=== PATIENT | male | born 1950 | race Caucasian/White ===

== ENCOUNTER 2018-08-11 10:52 | Observation (INO) ==
[2018-08-11] MEDS ORDERED: Acetaminophen 325 MG Tablet PO ONE (11:15)
[2018-08-11] MEDS ORDERED: Sod Chloride 0.9% Inj 1,000 ML IV.SIG SCH ×2 (11:15→12:15)
--- NOTE | 2018-08-11 11:30 | ED ---
HPI General Chief Complaint: Fever Stated Complaint: Medical/fever Time Seen by Provider: 08/11/18 11:09 Source: patient and family Mode of arrival: ambulatory Limitations: no limitations History of Present Illness HPI Narrative: 67-year-old male the presents to the ED via private vehicle for evaluation of fever. Per patient he has had fever body aches and cough and congestion since last night. Per patient fever was as high as 103 today. Patient states having no chest pain but having congestion and cough. No urinary or bowel movement issues. States having chills and sweats. Per patient he is from [place]. Recently came here with . He does state the last year he had the flu around this time and believes that he might have the same. He was not given anything for his fever today. He denies any sick contacts. He denies any pain other than body aches was the pain is 4 out of 10. Has not seen anybody for this. Has not taken anything for this. Patient does have a significant history of throat cancer for which he had radiation and chemo at the end of April and that is the last time he is had any treatment for this. Per patient he is currently in remission. Related Data Home Medications Medication Instructions Recorded Confirmed gabapentin 600 mg PO TID 08/11/18 08/11/18 metoprolol tartrate 25 mg PO DAILY 08/11/18 08/11/18 Allergies Allergy/AdvReac Type Severity Reaction Status Date / Time No Known Allergies Allergy Verified 08/11/18 11:00 Review of Systems ROS: all other systems reviewed are negative [facility] Medical History Medical History CIDP (chronic inflammatory demyelinating polyneuropathy) (Acute) Throat cancer (Acute) Surgical History Surgical History H/O stem cell transplant (Acute) Social History Social History Substance History: No History of Abuse Smoking Status: Former smoker How Often Do You Have a Drink Containing Alcohol: Never Recent Travel in [facility] within the Last 8 Weeks: No Recent Out of Country Travel within the Last 8 Weeks: No Immunization History Tetanus Immunization: >5 Years Exam Narrative Exam Narrative: GENERAL: Well appearing SKIN: Focused skin assessment warm/dry. HEAD: Atraumatic. Normocephalic. EYES: Pupils equal and round. No scleral icterus. No injection or drainage. ENT: No nasal bleeding or discharge. Mucous membranes pink and moist. Tongue is midline. No uvula deviation. Nostrils are patent bilaterally. Patient does have some irritation of the mucosa on both nares with some green mucus noted in both nares are more noticeable on the left one than the right no lymphadenopathy noted. TMs are clear with no sign of infection or perforation. No meningeal signs noted. NECK: Trachea midline. No JVD. CARDIOVASCULAR: Regular rate and rhythm. No murmur appreciated. RESPIRATORY: No accessory muscle use. Clear to auscultation. Breath sounds equal bilaterally. GASTROINTESTINAL: Abdomen soft, non-tender, nondistended. Hepatic and splenic margins not palpable. MUSCULOSKELETAL: No obvious deformities. No clubbing. No cyanosis. No edema. Full range of motion of the upper and lower extremities bilaterally. 2+ pulses bilaterally. NEUROLOGICAL: Awake and alert. No obvious cranial nerve deficits. Motor grossly within normal limits. Normal speech. PSYCHIATRIC: Appropriate mood and affect; insight and judgment normal. Course Initial Documented Vital Signs Temperature 102.6 F H 08/11/18 10:56 Pulse Rate 133 H 08/11/18 10:56 Respiratory Rate 18 08/11/18 10:56 Blood Pressure 165/76 H 08/11/18 10:56 Pulse Oximetry 96 08/11/18 10:56 Last Documented Vital Signs Temperature 97.7 F 08/11/18 12:46 Pulse Rate 104 H 08/11/18 13:01 Respiratory Rate 22 08/11/18 12:46 Blood Pressure 95/57 L 08/11/18 13:01 Pulse Oximetry 94 L 08/11/18 12:46 Medical Decision Making JESSE Attestation JESSE supervised visit: Yes Attestation: I, Dr. Garces, have reviewed the advance practice practitioner's documentation and am in agreement, met with the patient face to face, made the diagnosis, and the medical decision making was done by me. *My assessment and Findings: Pt with fever, tachycardia, neutrophilia of 90%, unclear source however URI complaints. influenza negative. cxr negative. levaquin for empiric coverage. ADRIEN Leon d/w Dr Garcia for [facility]. pt with HR approx 100 after 1.5L NS and BP 95/60. well appearing at bedside with warm dry skin, speaking full sentences, no resp distress, watching tv with . ok for floor with tele. MDM Narrative Medical decision making narrative: 67-year-old male the presents to the ED for evaluation of fever. Patient was properly examined and was found to have signs and symptoms consistent with appears to be very likely upper respiratory infection. Labs and imaging ordered as patient currently is tachycardic in the 130s with a fever 102.8. Patient was given Tylenol and fluids. Patient meets sepsis criteria at this time. Will reassess after Tylenol and fluids. Labs and imaging showed lactic acidosis but otherwise really unremarkable exam. Case was discussed with my attending Dr. Garces who recommends admission. Dr. Payne and agreed to take the patient to his service. Patient was admitted to his service. Apparently patient does have a history of myelodysplastic syndrome and has had a transfusion of stem cells because of this he has an increased chance of having worsening infection. Because of this recommendation is for admission. Family and patient agree with this. Medical Screen Exam Complete: Yes Emergency Medical Condition: Yes Differential Diagnosis Differential Diagnosis: Sepsis versus pneumonia versus influenza versus URI Medical Records Medical records reviewed: Yes I reviewed the patient's medical records. Lab Data Lab results reviewed: Yes I reviewed the patient's lab results. Result diagrams: 08/11/18 11:20 08/11/18 11:20 Lab Results 08/11/18 08/11/1818 Range/Units 11:20 11:20 11:22 WBC 8.8 (4.0-11.0) th/mm3 RBC 4.25 L (4.50-5.90) mil/mm3 Hgb 15.8 (13.0-17.0) gm/dL Hct 44.7 (39.0-51.0) % MCV 105.0 H (80.0-100.0) fL MCH 37.2 H (27.0-34.0) pg MCHC 35.4 (32.0-36.0) % RDW 13.4 (11.6-17.2) % Plt Count 142 L (150-450) th/mm3 MPV 7.3 (7.0-11.0) fL Prelim Diff (Auto) Slide review pending Neut % (Auto) 91.2 H (16.0-70.0) % Lymph % (Auto) 4.2 L (9.0-44.0) % [place] % (Auto) 3.5 (0.0-8.0) % Eos % (Auto) 0.9 (0.0-4.0) % Baso % (Auto) 0.2 (0.0-2.0) % Neut # (Auto) 8.1 H (1.8-7.7) th/mm3 Lymph # (Auto) 0.4 L (1.0-4.8) th/mm3 [place] # (Auto) 0.3 (0.0-0.9) th/mm3 Eos # (Auto) 0.1 (0.0-0.4) th/mm3 Baso # (Auto) 0.0 (0.0-0.2) th/mm3 WBC Differential Manual diff final Seg Neuts % (Manual) 84 H (16-70) % Band Neuts % (Manual) 5 (0-6) % Lymphocytes % (Manual) 4 L (9-44) % Monocytes % (Manual) 5 (0-8) % Eosinophils % (Manual) 1 (0-4) % Basophils % (Manual) 1 (0-2) % Abs Neuts (Manual) 7.8 H (1.8-7.7) th/mm3 Differential Comment . Platelet Estimate Low L (Normal) Platelet Morphology Normal (Normal) Sodium 137 (136-145) meq/L Potassium 4.3 (3.5-5.1) meq/L Chloride 101 (98-107) meq/L Carbon Dioxide 28.4 (21.0-32.0) meq/L Anion Gap 8 (5-15) meq/L BUN 12 (7-18) mg/dL Creatinine 0.98 (0.60-1.30) mg/dL Estimated GFR 76 L (>89) mL/min Random Glucose 115 H (74-106) mg/dL Lactic Acid 2.6 H (0.4-2.0) mmol/L Calcium 9.4 (8.5-10.1) mg/dL Magnesium 1.6 (1.5-2.5) mg/dL Total Bilirubin 0.9 (0.2-1.0) mg/dL AST 12 L (15-37) U/L ALT 19 (12-78) U/L Alkaline Phosphatase 74 (45-117) U/L Total Protein 8.0 (6.4-8.2) g/dL Albumin 4.1 (3.4-5.0) g/dL Urine Color (Yellw/Straw) Urine Clarity (Clear) Urine pH (5.0-8.5) Ur Specific [place] (1.002-1.035) Urine Protein (Neg-Trace) mg/dL Urine Glucose (UA) (Negative) mg/dL Urine Ketones (Negative) mg/dL Urine Occult Blood (Negative) Urine Nitrate (Negative) Urine Bilirubin (Negative) Urine Urobilinogen (Less than 2) mg/dL Ur Leukocyte Esterase (Negative) Urine RBC (0-3) /hpf Urine WBC (0-5) /hpf Micro UA Comment Ur Microscopic Review Urine Culture Comments 08/11/18 Range/Units 11:50 WBC (4.0-11.0) th/mm3 RBC (4.50-5.90) mil/mm3 Hgb (13.0-17.0) gm/dL Hct (39.0-51.0) % MCV (80.0-100.0) fL MCH (27.0-34.0) pg MCHC (32.0-36.0) % RDW (11.6-17.2) % Plt Count (150-450) th/mm3 MPV (7.0-11.0) fL Prelim Diff (Auto) Neut % (Auto) (16.0-70.0) % Lymph % (Auto) (9.0-44.0) % [place] % (Auto) (0.0-8.0) % Eos % (Auto) (0.0-4.0) % Baso % (Auto) (0.0-2.0) % Neut # (Auto) (1.8-7.7) th/mm3 Lymph # (Auto) (1.0-4.8) th/mm3 [place] # (Auto) (0.0-0.9) th/mm3 Eos # (Auto) (0.0-0.4) th/mm3 Baso # (Auto) (0.0-0.2) th/mm3 WBC Differential Seg Neuts % (Manual) (16-70) % Band Neuts % (Manual) (0-6) % Lymphocytes % (Manual) (9-44) % Monocytes % (Manual) (0-8) % Eosinophils % (Manual) (0-4) % Basophils % (Manual) (0-2) % Abs Neuts (Manual) (1.8-7.7) th/mm3 Differential Comment Platelet Estimate (Normal) Platelet Morphology (Normal) Sodium (136-145) meq/L Potassium (3.5-5.1) meq/L Chloride (98-107) meq/L Carbon Dioxide (21.0-32.0) meq/L Anion Gap (5-15) meq/L BUN (7-18) mg/dL Creatinine (0.60-1.30) mg/dL Estimated GFR (>89) mL/min Random Glucose (74-106) mg/dL Lactic Acid (0.4-2.0) mmol/L Calcium (8.5-10.1) mg/dL Magnesium (1.5-2.5) mg/dL Total Bilirubin (0.2-1.0) mg/dL AST (15-37) U/L ALT (12-78) U/L Alkaline Phosphatase (45-117) U/L Total Protein (6.4-8.2) g/dL Albumin (3.4-5.0) g/dL Urine Color Yellow (Yellw/Straw) Urine Clarity Clear (Clear) Urine pH 7.0 (5.0-8.5) Ur Specific [place] 1.012 (1.002-1.035) Urine Protein Negative (Neg-Trace) mg/dL Urine Glucose (UA) Negative (Negative) mg/dL Urine Ketones Negative (Negative) mg/dL Urine Occult Blood Negative (Negative) Urine Nitrate Negative (Negative) Urine Bilirubin Negative (Negative) Urine Urobilinogen Less than 2 (Less than 2) mg/dL Ur Leukocyte Esterase Negative (Negative) Urine RBC 1 (0-3) /hpf Urine WBC 2 (0-5) /hpf Micro UA Comment Culture not ind Ur Microscopic Review Not Reportable Urine Culture Comments Culture not ind Imaging Data Attestation: I personally reviewed and interpreted this imaging study as follows : Radiologist's impression: Chest X-Ray 08/11/18 11:15 CONCLUSION: Negative examination. ECG Data Attestation: I personally reviewed and interpreted this ECG as follows: Interpretation: EKG shows sinus tachycardia but no sign of acute ischemia read by me and attending. Discharge Plan Discharge Disposition Patient Disposition: 30 Still Patient Discharge Details Diagnosis: Sepsis Physicians Team ED Provider: Trevon Garces ED Midlevel Provider: Sudhir Leon Attending Provider: Esau Torre Status ED Status: Admitted Observation Patient
[2018-08-11 11:34] LABS: Baso % (Auto) 0.2 % (0.0-2.0); Eos # (Auto) 0.1 th/mm3 (0.0-0.4); Eos % (Auto) 0.9 % (0.0-4.0); Hematocrit 44.7 % (39.0-51.0); Hemoglobin 15.8 gm/dL (13.0-17.0); Lymph # (Auto) 0.4 th/mm3 (1.0-4.8); Lymph % (Auto) 4.2 % (9.0-44.0); Mean Corpuscular HGB Conc 35.4 % (32.0-36.0); Mean Corpuscular Hemoglobin 37.2 pg (27.0-34.0); Mean Platelet Volume 7.3 fL (7.0-11.0); Mono # (Auto) 0.3 th/mm3 (0.0-0.9); Mono % (Auto) 3.5 % (0.0-8.0); Neut # (Auto) 8.1 th/mm3 (1.8-7.7); Neut % (Auto) 91.2 % (16.0-70.0); Platelet Count 142 th/mm3 (150-450); Red Blood Count 4.25 mil/mm3 (4.50-5.90); Red Cell Distribution Width 13.4 % (11.6-17.2); White Blood Count 8.8 th/mm3 (4.0-11.0)
--- NOTE | 2018-08-11 11:42 | XR ---
EXAM DATE: 08/11/2018 11:31 AM EST AGE/SEX: 67 years / Male INDICATIONS: Shortness of breath and tremors. CLINICAL DATA: This is the patient's initial encounter. Patient reports that signs and symptoms have been present for 1 day and indicates a pain score of 0/10. MEDICAL/SURGICAL HISTORY: . Carcinoma, throat. . Chemo and radiation therapy. COMPARISON: No prior exams available for comparison. FINDINGS: A single AP view of the chest demonstrates the lungs to be symmetrically aerated without evidence of mass, infiltrate or effusion. The cardiomediastinal contours are unremarkable. Osseous structures a re intact. CONCLUSION: Negative examination. Electronically signed by: Edna Hodge MD 08/11/2018 11:41 AM EST
[2018-08-11 11:49] LABS: Alanine Aminotransferase 19 U/L (12-78); Albumin 4.1 g/dL (3.4-5.0); Anion Gap 8 meq/L (5-15); Aspartate Aminotransferase 12 U/L (15-37); Blood Urea Nitrogen 12 mg/dL (7-18); Calcium 9.4 mg/dL (8.5-10.1); Carbon Dioxide 28.4 meq/L (21.0-32.0); Chloride 101 meq/L (98-107); Glomerular Filtration Rate 76 mL/min (>89); Glucose,Random 115 mg/dL (74-106); Magnesium 1.6 mg/dL (1.5-2.5); Potassium 4.3 meq/L (3.5-5.1); Sodium 137 meq/L (136-145)
[2018-08-11 11:51] LABS: Alkaline Phosphatase 74 U/L (45-117)
[2018-08-11 12:09] LABS: Bilirubin,Urine Negative (Negative); Clarity,Urine Clear (Clear); Color,Urine Yellow (Yellw/Straw); Glucose,Urine (UA) Negative (Negative); Leukocyte Esterase,Urine Negative (Negative); Nitrite,Urine Negative (Negative); Specific Gravity,Urine 1.012 (1.002-1.035)
[2018-08-11 12:12] LABS: Eosinophils 1 % (0-4); Lymphocytes 4 % (9-44); Monocytes 5 % (0-8)
[2018-08-11 12:14] LABS: Platelet Morphology Normal (Normal)
[2018-08-11] MEDS ORDERED: Acetaminophen 325 MG Tablet PO PRN (12:26)
[2018-08-11] MEDS ORDERED: Levofloxacin 500 mg Premix Inj 500 MG/100 ML PIGGYBACK IV.SIG SCH (12:29)
--- NOTE | 2018-08-11 12:50 | P.HPIM ---
History of Present Illness History of Present Illness: Pt is 67 yo with CIDP s/p stem cell transplant about 5 or 6 yrs ago. 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 He completed chemotherapy and radiation in April. Pt says he gets frequent pna requiring antibiotics. Reports flares of cidp with infections if not treated early and aggressively. Pt says he awoke today with cough and sinus congestion and fever 103. No vomiting or diarrhea. no abdomen pain. he had some body ache. noted to have influenza last yr. doesn't take flu shots. flu test in ED negative. PMH: CIDP. s/p stem cell trasplant SCC left tonsil. s/p chemoradiation completed 05/12 hand /feet peripheral neuropathy htn SH: quit tobacco 20yrs ago after 1 1/2 ppd x 20yrs quit etoh 20yrs ago. periods of heavy use prior to that FH; noncontributory Diagnosis (1) Respiratory infection: (2) CIDP (chronic inflammatory demyelinating polyneuropathy): (3) Squamous cell carcinoma of tonsil: (4) HTN (hypertension): Inpatient Certification Inpatient Certification: I certify that the inpatient services were ordered in accordance with Medicare regulations governing the order. This includes certification that hospital inpatient services are reasonable and necessary and in the case of services not specified as inpatient-only under 42 CFR 419.22(n), that they are appropriately provided as inpatient services in accordance to with the 2-midnight benchmark under 43 CFR 412.3(e) Medications and Allergies Allergies Allergy/AdvReac Type Severity Reaction Status Date / Time No Known Allergies Allergy Verified 08/11/18 11:00 Home Medications Medication Instructions Recorded Confirmed Type gabapentin 600 mg PO TID 08/11/18 08/11/18 History metoprolol tartrate 25 mg PO DAILY 08/11/18 08/11/18 History Active Medications: Active Medications Acetaminophen (Tylenol) 650 mg PO Q4H PRN PRN Reason: Temp > 100.4 Al Hydroxide/Mg Hydroxide (Milk Of Magnesia Liq) 30 ml PO Q12H PRN PRN Reason: Mild Constipation Albuterol (Duoneb Neb (Prn)) 1 ampul NEB Q2HR NEB PRN PRN Reason: SOB/wheezing Sodium Chloride (Ns Inj) 1,000 mls @ 0 mls/hr IV.SIG .Q0M PARKER Last Admin: 08/11/18 12:42 Dose: 1,000 mls/hr Sodium Chloride (Ns Inj) 1,000 mls @ 1,000 mls/hr IV.SIG BOLUS PARKER Stop: 08/11/18 13:14 Last Admin: 08/11/18 12:43 Dose: 1,000 mls/hr Levofloxacin/Dextrose (Levaquin 500 Mg Premix Inj) 500 mg in 100 mls @ 100 mls/ hr IV.SIG Q24H PARKER Last Admin: 08/11/18 12:42 Dose: 100 mls/hr Metoprolol Tartrate (Lopressor) 25 mg PO DAILY [facility] Non-Formulary Medication (Gabapentin [Gabapentin]) 600 mg PO TID PARKER Ondansetron HCl (Zofran Inj) 4 mg IV.PUSH Q6H PRN PRN Reason: NAUSEA OR VOMITING Senna/Docusate Sodium (Lidia-Colace) 1 tab PO BID PARKER Zolpidem Tartrate (Ambien) 10 mg PO HS PRN PRN Reason: INSOMNIA Physical Exam Vital signs: Last Vital Signs Temp 102.6 F H 08/11/18 10:56 Pulse 116 H 08/11/18 11:30 Resp 17 08/11/18 11:30 BP 152/64 H 08/11/18 11:30 Pulse Ox 96 08/11/18 11:30 Narrative: nasal mucous/drainage bilateral nares/some green tympanic membraines w;out injection/fluid neck supple mouth very dry. no erythema heart reg/tachy lung clear bilaterally ext no edema Results Labs CBC & Chem 7: 08/11/18 11:20 08/11/18 11:20 Caprini VTE Risk Assessment Caprini Risk Assessment Model: Point Value = 1 Point Value = 2 Point Value = 3 Point Value = 5 Age 41-60 Minor surgery BMI > 25 kg/m2 Swollen legs Varicose veins or History of unexplained or recurrent spontaneous Oral contraceptives or hormone replacement Sepsis (< 1 month) Serious lung disease, including pneumonia (< 1 month) Abnormal pulmonary function Acute myocardial infarction Congestive heart failure (< 1 month) History of inflammatory bowel disease Medical patient at bed rest Age 61-74 Arthroscopic surgery Major open surgery (> 45 min) Laparoscopic surgery (> 45 min) Malignancy Confined to bed (> 72 hours) Immobilizing plaster cast Central venous access Age >= 75 History of VTE Family history of VTE Factor V Leiden Prothrombin 42685C Lupus anticoagulant Anticardiolipin antibodies Elevated serum homocysteine Heparin-induced thrombocytopenia Other congenital or acquired thrombophilia Stroke (< 1 month) Elective arthroplasty Hip, pelvis, or leg fracture Acute spinal cord injury (< 1 month) Prophylaxis Regimen: Total Risk Factor Score Risk Level Prophylaxis Regimen 0-1 Low Early ambulation 2 Moderate Order ONE of the following: *Sequential Compression Device (SCD) *Heparin 5000 units SQ BID 3-4 Higher Order ONE of the following medications: *Heparin 5000 units SQ TID *Enoxaparin/Lovenox 40 mg SQ daily (WT < 150 kg, CrCl > 30 mL/min) *Enoxaparin/Lovenox 30 mg SQ daily (WT < 150 kg, CrCl > 10-29 mL/min) *Enoxaparin/Lovenox 30 mg SQ BID (WT < 150 kg, CrCl > 30 mL/min) AND/OR *Sequential Compression Device (SCD) 5 or more Highest Order ONE of the following medications: *Heparin 5000 units SQ TID (Preferred with Epidurals) *Enoxaparin/Lovenox 40 mg SQ daily (WT < 150 kg, CrCl > 30 mL/min) *Enoxaparin/Lovenox 30 mg SQ daily (WT < 150 kg, CrCl > 10-29 mL/min) *Enoxaparin/Lovenox 30 mg SQ BID (WT < 150 kg, CrCl > 30 mL/min) AND *Sequential Compression Device (SCD) Assessment and Plan Assessment (1) Respiratory infection: Code(s): J98.8 - Other specified respiratory disorders Status: Acute (2) CIDP (chronic inflammatory demyelinating polyneuropathy): Code(s): G61.81 - Chronic inflammatory demyelinating polyneuritis Status: Chronic (3) Squamous cell carcinoma of tonsil: Code(s): C09.9 - Malignant neoplasm of tonsil, unspecified Status: Resolved (4) HTN (hypertension): Code(s): I10 - Essential (primary) hypertension Status: Chronic Plan 1. Upper respiratory infection. possible viral syndrome but will cover bacterial etiology. Pt with CIDP s/p stem cell transplant. Recent left tonsillar SCC s/p chemoradiation HTN peripheral neuropathy observation. pt has high fever with sinus tachycardia He gives hx that infections flare his cidp if not treated quickly influenza test negative blood cx taken and pending will cover with levaquin greg has worked for him in the past claritin for sinus congestion. IVF. telemetry hopefully dc home tomorrow.
[2018-08-11] MEDS: Loratadine 10 MG Tablet PO SCH (14:02)
[2018-08-11] MEDS: Gabapentin 300 MG Capsule PO SCH ×2 (15:58→18:20)
[2018-08-11] MEDS: Sod Chloride 0.9% Inj 1,000 ML IV.CONT SCH (16:06)
[2018-08-11] MEDS: Senna/Docusate Sodium 8.6/50 MG Tablet PO SCH (21:31)
[2018-08-12 00:53] VITALS: O2SAT 95
[2018-08-12] MEDS: Sod Chloride 0.9% Inj 1,000 ML IV.CONT SCH (05:36)
[2018-08-12 05:43] VITALS: RESP 18
[2018-08-12 07:35] VITALS: BP 98/70; TEMP 97.9
--- NOTE | 2018-08-12 07:54 | XR ---
EXAM DATE: 08/12/2018 7:44 AM EST AGE/SEX: 67 years / Male INDICATIONS: . Short of breath. CLINICAL DATA: This is the patient's subsequent encounter. Patient reports that signs and symptoms h ave been present for 2 days and indicates a pain score of 0/10. MEDICAL/SURGICAL HISTORY: . Carcinoma, throat. . Chemo and radiation therapy. None. COMPARISON: [facility], CHEST 1V SINGLE AP, 08/11/2018. [facility], PET/CT HEAD/NECK, 01/04/2018. . FINDINGS: PA lateral views of the chest demonstrate an area of airspace opacity overlying the posterior aspect of the right lower lobe. This appears to be new as compared to the prior exam. This may represent an infectious process such as pneumonia. The left hemithorax is clear. Heart size is normal. Pulmonary vasculature is normal. CONCLUSION: New airspace opacity overlying the posterior aspect of the right lower lobe. This could represent an infectious process such as pneumonia. Follow-up imaging is recommended. Electronically signed by: Edna Hodge MD 08/12/2018 7:52 AM EST
[2018-08-12] MEDS: Gabapentin 300 MG Capsule PO SCH (08:00)
[2018-08-12] MEDS: Senna/Docusate Sodium 8.6/50 MG Tablet PO SCH (08:00)
[2018-08-12] MEDS: Loratadine 10 MG Tablet PO SCH (08:00)
[2018-08-12] MEDS ORDERED: Metoprolol Tartrate 25 MG Tablet PO SCH (09:00)
[2018-08-12 09:37] LABS: Baso % (Auto) 0.2 % (0.0-2.0); Eos # (Auto) 0.1 th/mm3 (0.0-0.4); Eos % (Auto) 0.7 % (0.0-4.0); Hematocrit 35.2 % (39.0-51.0); Hemoglobin 12.4 gm/dL (13.0-17.0); Lymph # (Auto) 0.6 th/mm3 (1.0-4.8); Lymph % (Auto) 6.2 % (9.0-44.0); Mean Corpuscular HGB Conc 35.2 % (32.0-36.0); Mean Corpuscular Hemoglobin 36.6 pg (27.0-34.0); Mean Corpuscular Volume 103.9 fL (80.0-100.0); Mean Platelet Volume 7.4 fL (7.0-11.0); Mono # (Auto) 0.8 th/mm3 (0.0-0.9); Mono % (Auto) 8.5 % (0.0-8.0); Neut # (Auto) 7.8 th/mm3 (1.8-7.7); Neut % (Auto) 84.4 % (16.0-70.0); Platelet Count 110 th/mm3 (150-450); Red Blood Count 3.39 mil/mm3 (4.50-5.90); Red Cell Distribution Width 13.4 % (11.6-17.2); White Blood Count 9.3 th/mm3 (4.0-11.0)
--- NOTE | 2018-08-12 09:49 | P.PNIM ---
Subjective Interval history: feels great. he and prefer to go home this AM sinus congestion better. denies cough/sob today no cp. Physical Exam Vital signs: Last Vital Signs Temp 97.9 F 08/12/18 07:34 Pulse 87 08/12/18 07:34 Resp 18 08/12/18 07:34 BP 98/70 L 08/12/18 07:34 Pulse Ox 95 08/12/18 08:05 Narrative: nad. oriented no labored breathing heart reg lung cta abds /nt ext no edema Results Labs CBC & Chem 7: 08/12/18 09:22 08/11/18 11:20 Assessment and Plan Assessment (1) Respiratory infection: Code(s): J98.8 - Other specified respiratory disorders Status: Acute (2) CIDP (chronic inflammatory demyelinating polyneuropathy): Code(s): G61.81 - Chronic inflammatory demyelinating polyneuritis Status: Chronic (3) Squamous cell carcinoma of tonsil: Code(s): C09.9 - Malignant neoplasm of tonsil, unspecified Status: Resolved (4) HTN (hypertension): Code(s): I10 - Essential (primary) hypertension Status: Chronic Plan 1. respiratory infection. Mostly sinus congestion/cough. Likely viral syndrome but will cover for community aquired infection. CXR showed some apparent infiltrate in right lower lung but pt does'nt really feel the infection in his chest. Pt with CIDP s/p stem cell transplant. Recent left tonsillar SCC s/p chemoradiation HTN peripheral neuropathy fever resolved overnight. wbc stable. clinically feels much better. blood cx's pending. Pt eager for dc home. will continue the levaquin. instructed pt/ on OTC remedies for sinus congestion/fevers Progress Note: Quality VTE Deep Vein Thrombosis/Pulmonary Embolism Present on Admission: No
[2018-08-12] MEDS ORDERED: levoFLOXacin 500 MG Tablet PO ONE (09:50)
[2018-08-12 09:56] VITALS: PULSE 74
[2018-08-12 10:00] LABS: Anion Gap 5 meq/L (5-15); Blood Urea Nitrogen 11 mg/dL (7-18); Calcium 8.5 mg/dL (8.5-10.1); Chloride 106 meq/L (98-107); Glomerular Filtration Rate Greater Than 89 mL/min (>89); Glucose,Random 124 mg/dL (74-106); Potassium 3.5 meq/L (3.5-5.1); Sodium 139 meq/L (136-145)
--- NOTE | 2018-08-12 15:34 | ECG ---
Date Performed: 08/11/2018 Time Performed: 11:30:26 PTAGE: 67 years EKG: SINUS TACHYCARDIA WITH OCCASIONAL SUPRAVENTRICULAR PREMATURE COMPLEXES ABNORMAL RHYTHM ECG NO PREVIOUS TRACING DOCTOR: Esau Orlando Interpretating Date/Time 08/12/2018 15:33:52
== END 2018-08-12 10:59 | disposition home or self-care (01) ==
LOC: NEDA 10:52 → NEPC 10:52 → N04 13:39
PROVIDERS: ADMIT Hospitalist; ATTEND Hospitalist
DX: J06.9 Acute upper respiratory infection, unspecified; Z92.3 Personal history of irradiation; Z92.21 Personal history of antineoplastic chemotherapy; G61.81 Chronic inflammatory demyelinating polyneuritis; Z94.84 Stem cells transplant status; I10 Essential (primary) hypertension; Z85.818 Personal history of malignant neoplasm of other sites of lip, oral cavity, and pharynx; Z87.891 Personal history of nicotine dependence; Z79.899 Other long term (current) drug therapy